=== PATIENT | male | born 2000 | race Caucasian/White ===

== ENCOUNTER 2024-11-27 23:34 | Emergency (ER) | payer SELFPAY ==
[~2024-11-27] VITALS: Ht 177.8 cm; Wt 82.0 kg
[2024-11-27 23:36] VITALS: BP 128/80; PULSE 64; RESP 18; TEMP 36.7; O2SAT 95
== END 2024-11-27 23:48 | disposition home or self-care (01) ==
LOC: EDBD 23:34 → ER 23:34
DX: F10.129 Alcohol abuse with intoxication, unspecified (principal); Y90.9 Presence of alcohol in blood, level not specified
CPT/HCPCS: 99283